=== PATIENT | female | born 1970 | race Caucasian/White ===

== ENCOUNTER 2019-11-21 13:43 | Outpatient (CLI) | payer BC, OTHER ==
--- NOTE | 2019-11-21 14:07 | BD ---
Exam: DEXA Bone Density 11/21/19 HISTORY: Postmenopausal screening for osteoporosis. FINDINGS: Lumbar Spine: BMD (g/cm2) T-SCORE Z-SCORE L1 0.894 -0.9 -0.1 L2 0.947 -0.7 0.1 L3 0.939 -1.3 -0.5 L4 0.929 -1.2 -0.3 L1-L4 0.928 -1.1 -0.2 Femoral Neck: 0.926 0.7 1.5 Total Femur: 0.999 0.5 1.0 Impression: Osteopenia. POS: [facility]
== END 2019-11-21 13:44 | disposition home or self-care (01) ==
LOC: BICMAMMO 13:43
PROVIDERS: ATTEND Obstetrics & Gynecology
DX: Z13.820 Encounter for screening for osteoporosis (principal); M85.88 Other specified disorders of bone density and structure, other site
CPT/HCPCS: 77080